=== PATIENT | female | born 1995 | race Caucasian/White ===

== ENCOUNTER 2020-05-12 08:35 | Outpatient (CLI) | payer OTHER ==
--- NOTE | 2020-05-12 09:47 | ULT ---
OBSTETRICAL ULTRASOUND: DATE: 05/12/2020. HISTORY: A 24-year-old female undergoing evaluation of anatomy. TECHNIQUE: Multiplanar, emery scale, sonographic imaging of the gravid uterus obtained. FINDINGS: There is a single intrauterine gestation demonstrating a vertex presentation. The placenta is locate d anteriorly and demonstrates no evidence for placenta previa or abruption. The intracranial contents, the spine, and the region of the kidneys appear unremark able. stomach, umbilical cord, and umbilical cord insertion site appear grossly unremarkable. The urinary bladder is unremarkable. Amniotic fluid index is 14.1 cm. nose and lips/fa ce appear grossly unremarkable. Cervical length is approximately 4.1 cm. Four-chamber heart view is suboptimal. heart rate is 146 b.p.m. Biometry: BPD 4.6 cm, 20 weeks 0 days HC 17.6 cm, 20 weeks 1 day AC 13.6 cm, 19 weeks 1 day FL 3.2 cm, 19 weeks 6 days Average based on ultrasound is 19 weeks 6 days. Estimated date of delivery is 09/30/2020. Estimated weight is 296 gm +/- 43 gm (15th percentile). IMPRESSION: Single intrauterine gestation as detailed above. The 4-chamber heart view is suboptimal secondary to position and motion. POS: AH
== END 2020-05-12 08:36 | disposition home or self-care (01) ==
LOC: BICULT 08:35
PROVIDERS: ATTEND Family Medicine
DX: O09.892 Supervision of other high risk pregnancies, second trimester (principal); Z3A.19 19 weeks gestation of pregnancy
CPT/HCPCS: 76805

== ENCOUNTER 2020-07-19 17:54 | Day surgery (SDC) | payer OTHER ==
[2020-07-19 18:48] VITALS: BMI 40.7
[2020-07-19] MEDS ORDERED: hydrALAZINE 20 MG/ML VIAL SLOW IVP PRN (19:54)
[2020-07-19 20:38] LABS: Bilirubin Negative (Negative); Blood, Urine Negative (Negative); Clarity Clear (Clear); Glucose, Urine (Dipstick) Normal (Negative); Ketone, Urine Negative (Negative); Leukocyte Negative Leu/uL (Negative); Nitrite Negative (Negative); Protein, Urine (Dipstick) Negative (Neg-Trace); RBC/HPF 0-3 HPF (0-3); Specific Gravity, Urine 1.013 (1.002-1.036); Squamous Epithelial None Seen HPF (0-3); Urobilinogen Normal mg/dL (Less than 2); WBC/HPF 0-3 HPF (0-3)
[2020-07-19 20:39] LABS: Bacteria/HPF Rare-Few HPF (None Seen)
--- NOTE | 2020-07-19 21:11 | PRG ---
DATE OF SERVICE: 07/19/2020 PRIMARY OB: Dr. Slim Allan. CHIEF COMPLAINT: Abdominal pain and vaginal bleeding. HISTORY OF PRESENT ILLNESS: The patient is a 24-year-old, G5, P0 female with an intrauterine at 29 weeks and 6 days, presenting to Labor and Delivery with worsening abdominal pain and an episode of vaginal mucousy bleeding when she went to the bathroom. The patient reports she has had several-month history of abdominal pain. In fact, she had to quit work couple months ago due to this pain that had since subsided and got worse again today. She reports that when she was going to the bathroom, she noticed some blood-tinged stain on her panties and when she wiped, had some mucousy discharge and with her worsening pain, she came for evaluation. The patient does admit that she worries about this given her history of four previous losses. The patient reports that her pain is more on the lateral sides, seems to be most associated with activity and movement, though she does report it sometimes as a band-like pain. She does report she feels tightening at times. The patient reports rest helps. She denies any recent changes in her activity. She denies recent intercourse, outdoor excursions, or vigorous activity. The patient denies fever or cough. She reports some mild headache right now that she attributes to her migraines, but is not bad enough that she is needing treatment. She denies chest pain. She has some baseline shortness of breath just with the . She has had some nausea today. Denies vomiting. Reports intermittent diarrhea and constipation with this . She denies any new rashes. She has some hip problems, hip pains with , and left leg pain. She also reports some lower back pain. The patient denies otherwise other change in discharge, persistent vaginal bleeding. She denies urinary urgency or frequency. PAST MEDICAL HISTORY: Negative. PAST SURGICAL HISTORY: Negative. ALLERGIES: NO KNOWN DRUG ALLERGIES. MEDICATIONS: She is on a vitamin and aspirin daily. SOCIAL HISTORY: The patient denies any drug or alcohol or tobacco use with this . She does vape on occasion, but reports that is very irritating to her headaches. OB LABS: Unavailable at this time of dictation. REVIEW OF SYSTEMS: Per HPI. PHYSICAL EXAMINATION: VITAL SIGNS: Blood pressure 135/60, heart rate of 100, respiratory rate of 20, saturating 96% on room air, and temperature 98.7. GENERAL: She appears to be in no acute distress. She is alert, oriented, cooperative, and pleasant to interact with. HEAD: Normocephalic and atraumatic. LUNGS: Clear to auscultation bilaterally. HEART: Has regular rate and rhythm. ABDOMEN: Gravid and soft. She does have some tenderness with deviation of the uterus to the left and the right with the left side being most tender. She has no upper abdominal tenderness and no fundal tenderness. EXTREMITIES: Nontender and nonedematous. : Vulva is without masses, lesions, or erythema. Vagina is moist. She does have quite a bit of discharge reminiscent of yeast. Cervix is visibly closed. On digital exam, cervix is closed and firm and nonlabored. No evidence of source of bleeding on exam. heart tracing shows the fetus with a baseline in the 140s with moderate long-term variability, positive 15 x 15 accelerations, no decelerations. VPIII and UA have been collected and sent for evaluation and still pending. ASSESSMENT AND PLAN: The patient is a 24-year-old female, G5, P0, with an intrauterine at 29 weeks and 6 days, presenting for concerns of status due to abdominal pains and an episode of mucousy bloody discharge. On exam, the patient appears to have a yeast infection. There is no clear source that I can identify for her mucousy bloody discharge. Cervix is unlabored. There is no evidence of friable tissue in her vestibular and vaginal region. I will await the UA and VPIII for results. Fetus has a category I tracing and reactive NST. Anticipate discharge home once these lab results are available. The patient will be counseled to follow up with Dr. Allan, to call Dr. Allan's office tomorrow and can find out when he would like to see her for ER followup. Job ID: [id number]
[2020-07-20] MEDS ORDERED: FLU VACC QS2020-21(6MOS UP)/PF 60 MCG/0.5 ML SYRINGE IM ONE (09:00)
== END 2020-07-19 21:40 | disposition home or self-care (01) ==
LOC: L&D/OP 17:54
PROVIDERS: ATTEND Obstetrics & Gynecology
DX: O98.813 Other maternal infectious and parasitic diseases complicating pregnancy, third trimester (principal); B37.9 Candidiasis, unspecified; O46.92 Antepartum hemorrhage, unspecified, second trimester; O99.891 Other specified diseases and conditions complicating pregnancy; M54.5 Low back pain; O09.293 Supervision of pregnancy with other poor reproductive or obstetric history, third trimester; Z3A.29 29 weeks gestation of pregnancy; Z79.82 Long term (current) use of aspirin; Z88.8 Allergy status to other drugs, medicaments and biological substances
CPT/HCPCS: 81001; 87480; 87510; 87660

== ENCOUNTER 2020-08-22 00:18 | Day surgery (SDC) | payer OTHER ==
[2020-08-22] MEDS ORDERED: hydrALAZINE 20 MG/ML VIAL SLOW IVP PRN (00:34)
--- NOTE | 2020-08-22 00:38 | PDOC.LDHP ---
Labor and Delivery H&P Chief complaint: other (Elevated blood pressure) HPI: 24yo @ 34.5 wks presents with complaint of elevated BP at home. Pt states that she is being monitored for elevated BP's that was first identified at her office visit yesterday. Since then she has been monitoring her BP at home with a wrist cuff. They have all been in normal range until tonight when she got a reading of 186/65. She called L&D and was advised to come in for evaluation. Pt notes mild gradual vision changes that have occurred throughout the . She also notes lower extremity swelling that has been gradual as well. Denies any headaches, abdominal pain, neurologic symptoms, changes in urine. Of note pt was diagnosed with COVID on 03/27/20. 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 Current complications: preeclampsia without severe features Abnormal US findings: No Past Medical History: None Current medications: pre-lavonne vitamins, other (asa) Previous surgical history: none Allergies/Adverse Reactions: Allergies Allergy/AdvReac Type Severity Reaction Status Date / Time ferrous fumarate Allergy Verified 07/19/20 18:42 [From 1 + Iron] folic acid Allergy Verified 07/19/20 18:42 [From 1 + Iron] vit,tx Allergy Verified 07/19/20 18:42 calc,iron,folic acd(less thn 1 mg) [From 1 + Iron] vitamins with Allergy Verified 07/19/20 18:42 calcium [From 1 + Iron] Social history: none - Physical Exam Vital signs reviewed and normal: yes General: NAD Heart: RRR Lungs: CTAB Abdomen: gravid Extremeties: other (1+ edema non pitting) FHT: category 1, variability present Shelly contractions every: 6-10 mintues - not percieved by patient - OB Labs HEPSAg: negative 1 hour GCT: negative - Assessment 3rd Trimester - Elevated Blood Pressures - Plan -: - PreE labs: All negative - BP monitoring: All WNL, non >130/80 - All reported symptoms have been gradual onset and long standing, no severe features identified - Contractions were not perceived by patient and spaced out with oral fluid hydration Plan: DC home with return precautions. Has f/u next week with Dr. Allan. Will check home cuff against office cuff at that time. Addendum - Attending - Attending Attestation Date/Time: 08/22/20 0244 I personally evaluated the patient and discussed the management with Dr. Borrego. I agree with the History, Examination, Assessment and Plan documented above.
[2020-08-22 00:49] VITALS: BMI 43.8
[2020-08-22 01:00] LABS: #Eosinphils 0.2 thou/uL (0.0-0.7); #Lymphocytes 2.3 thou/uL (1.20-3.40); #Monocytes 0.9 thou/uL (0.11-0.59); #Neutrophils 5.2 thou/uL (1.40-6.50); %Basophils 0.4 % (0.0-1.0); %Eosinophils 2.2 % (0.0-10.0); %Lymphocytes 26.6 % (21.0-51.0); %Monocytes 10.4 % (0.0-10.0); %Neutrophils 60.5 % (42.0-75.0); Hemoglobin 9.6 g/dL (12.0-16.0); Mean Corpuscular HGB CONC 33.3 g/dL (32.0-36.0); Mean Corpuscular Hemoglobin 27.8 pg (27.0-31.0); Mean Corpuscular Volume 83.4 fL (78.0-98.0); Mean Platelet Volume 6.8 fL (7.4-10.4); Platelet Count 312 thou/uL (130-400); RBC Distribution Width 14.7 % (11.5-14.5); Red Blood Cell (RBC) Count 3.44 mill/uL (4.20-5.40); White Blood Cell (WBC) Count 8.6 thou/uL (4.8-10.8)
[2020-08-22 01:15] LABS: ALT (SGPT) 9 U/L (8-55); AST (SGOT) 15 U/L (5-34); Albumin 3.4 g/dL (3.5-5.0); Alkaline Phosphatase 82 U/L (40-110); Anion Gap 13 mmol/L (10-20); BUN (Urea Nitrogen) 6 mg/dL (7.0-18.7); Bilirubin, Total 0.2 mg/dL (0.2-1.2); Calc. Creatinine Clearance 334 mL/min (70-130); Carbon Dioxide 23 mmol/L (22-29); Chloride 106 mmol/L (98-107); Globulin 3.2 g/dL (2.4-3.5); Glucose 92 mg/dL (70-105); Potassium 4.1 mmol/L (3.5-5.1); Protein, Total 6.6 g/dL (6.0-8.3); Sodium 138 mmol/L (136-145)
[2020-08-22 01:41] LABS: Creatinine, Urine 25.63 mg/dL (47-110); Protein, Urine Random Quant Less than 10 mg/dL (1-14)
[2020-08-22] MEDS ORDERED: FLU VACC QS2020-21(6MOS UP)/PF 60 MCG/0.5 ML SYRINGE IM ONE (09:00)
== END 2020-08-22 02:55 | disposition home or self-care (01) ==
LOC: L&D/OP 00:18
PROVIDERS: ATTEND Obstetrics & Gynecology
DX: O16.3 Unspecified maternal hypertension, third trimester (principal); O14.03 Mild to moderate pre-eclampsia, third trimester; Z3A.34 34 weeks gestation of pregnancy; Z79.82 Long term (current) use of aspirin; Z88.8 Allergy status to other drugs, medicaments and biological substances
CPT/HCPCS: 36415; 80053; 82570; 83615; 84156; 85025; 99283